=== PATIENT | male | born 1985 | race African-American/Black ===

== ENCOUNTER 2022-12-30 13:13 | Emergency (ER) | payer OTHER, SELFPAY ==
[2022-12-30 13:31] VITALS: BP 127/76; PULSE 98; RESP 14; TEMP 37.6; O2SAT 98
--- NOTE | 2022-12-30 14:03 | ED.MALEGU ---
HPI - Male Genitourinary General Chief complaint: Urogenital-Male Stated complaint: exposed to STD Time Seen by Provider: 12/30/22 13:57 Source: patient and RN notes reviewed Mode of arrival: ambulatory Limitations: no limitations History of Present Illness HPI Narrative: Patient presents today complaining of a one-week history of dysuria, urinary frequency, clear urethral discharge, and penile discomfort. Two weeks ago he had unprotected intercourse with a female partner, who subsequently notified him that she tested positive for gonorrhea. She has been treated. Related Data Home Medications Medication Instructions Recorded Confirmed lisinopril 20 1 tablet PO BID 12/30/22 12/30/22 mg-hydrochlorothiazide 12.5 mg tablet Allergies Allergy/AdvReac Type Severity Reaction Status Date / Time No Known Allergies Allergy Verified 12/30/22 13:47 Review of Systems Review of Systems: CONSTITUTIONAL: Denies body aches, fever, chills, or sweats. EYES: Denies visual changes, redness, or discharge. ENT: Denies rhinorrhea, congestion, sore throat, or otalgia. CARDIOVASCULAR: Denies chest pain, palpitations, or edema. RESPIRATORY: Denies cough or dyspnea. GASTROINTESTINAL: Denies abdominal pain, nausea, vomiting, or diarrhea. GENITOURINARY: + dysuria, frequency, urethral discharge, penile discomfort SKIN: Denies rash, itching, or wounds. MUSCULOSKELETAL: Denies back pain, joint pain, or myalgia. NEUROLOGIC: Denies headache, numbness, tingling, or weakness. PSYCH: Denies depression or anxiety. PMFSH Comments At time of signature, I have reviewed and agree with nursing past medical, surgical, social and family history unless otherwise noted. Please see nursing chart for further information. There is no relevant family history pertinent to the presenting complaint Exam Narrative: GENERAL: Well-appearing, well-nourished, and in no acute distress. HEAD: Normocephalic, atraumatic. EYES: EOMI. No redness or drainage. Conjunctivae normal. ENT: Mucous membranes pink and moist. NECK: Normal AROM. CHEST: No respiratory distress. : deferred EXTREMITIES: Normal range of motion. No edema. SKIN: Warm, dry, no rash. Capillary refill normal. Normal skin turgor. NEURO: No focal deficits. Alert and oriented x3. Gait steady. PSYCH: Normal affect. No signs of depression or anxiety. Course Course Level of Care: Express Care Visit Vital Signs Vital signs: Vital Signs Temperature 99.6 F 12/30/22 13:31 Pulse Rate 98 12/30/22 13:31 Respiratory Rate 14 12/30/22 13:31 Blood Pressure 127/76 12/30/22 13:31 Pulse Oximetry 98 12/30/22 13:31 Oxygen Delivery Room Air 12/30/22 13:31 Temperature 99.6 F 12/30/22 13:31 Pulse Rate 98 12/30/22 13:31 Respiratory Rate 14 12/30/22 13:31 Blood Pressure 127/76 12/30/22 13:31 Pulse Oximetry 98 12/30/22 13:31 Oxygen Delivery Room Air 12/30/22 13:31 Reviewed. Pt has been instructed to follow up with his PCP regarding his elevated blood pressure today. MDM - Male Genitourinary MDM Narrative Medical decision making narrative: Urine sample has been sent to the lab for gonorrhea, chlamydia, and Trichomonas. Patient has been given a dose of Rocephin to cover him for gonorrhea. Prescriptions will be sent for doxycycline and Flagyl to cover for chlamydia and Trichomonas. Anticipatory guidance given. Differential Diagnosis Differential diagnosis: Likely urinary tract infection, urethritis, epididymitis and other (Gonorrhea, chlamydia, Trichomonas) Lab Data Attestation: I reviewed the patient's lab results. Labs: Lab Results 12/30/22 Range/Units 13:33 C.trachomatis RNA (TMA) Pending N.gonorrhoeae RNA (TMA) Pending T. vaginalis Amp RNA Pending Urine Glucose Negative Reference Range: Negative Urine Bilirubin Negative
[2022-12-30] MEDS: cefTRIAXone 500 MG, LIDOCAINE HCL 1% LOCAL INJ 1 ML IM (14:19)
== END 2022-12-30 14:32 | disposition home or self-care (01) ==
PROVIDERS: Emergency Provider Nurse Practitioner
DX: Z20.2 Contact with and (suspected) exposure to infections with a predominantly sexual mode of transmission (principal); I10 Essential (primary) hypertension
CPT/HCPCS: 81003; 87491; 87591; 87661; 96372; 99213; G0463; J0696